=== PATIENT | male | born 1950 | race Caucasian/White ===

== ENCOUNTER 2019-02-03 05:17 | Day surgery (SDC) | payer MEDICARE, OTHER ==
[2019-02-03] MEDS ORDERED: fentaNYL 100 MCG/2 ML SDV IV ONE ×3 (05:18→06:36)
[2019-02-03] MEDS ORDERED: Midazolam 1 MG/ML 2 ML SDV IV ONE ×7 (05:18→06:51)
[2019-02-03] MEDS ORDERED: Dextrose 5%-0.45% NaCl 1,000 ML IV SCH (06:00)
[2019-02-03] MEDS ORDERED: Sodium Chloride 0.9% 10 ML Syringe FLUSH PRN (06:00)
[2019-02-03] MEDS ORDERED: Midazolam 1 MG/ML 2 ML SDV ONE (06:16)
[2019-02-03] MEDS ORDERED: fentaNYL 100 MCG/2 ML SDV ONE (06:17)
--- NOTE | 2019-02-03 12:28 | OR ---
DATE: 02/03/2019 PROCEDURE PERFORMED: Total colonoscopy. INSTRUMENT USED: [id number] Olympus video colonoscope. PREMEDICATIONS: Fentanyl 100 mcg intravenous, Versed 4 mg intravenous. Nasal O2 cannula. The procedure was done under pulse oximetry, BP recording, and diagnostic cardiac sonographer. INDICATION: The patient with rectal bleeding and positive FIT. Colonoscopic examination is done for detection of any polypoid lesions and removal, endoscopic hemostasis therapy if needed. DESCRIPTION OF PROCEDURE: Initial rectal exam was unremarkable. Rigid anoscopy showed moderate-sized internal hemorrhoids with some prolapse of the mucosa. The colonoscope was passed with relative ease up to the ileocecal area. Photographs were taken of the cecum, identified by double-bulged ileocecal folds. No bleeding was noted from any of the visualized areas at the commencement of the examination. Bowel preparation was found to be adequate, [place] scale 2 in all the regions. No stricture, no vascular ectasia. No large isolated ulcerations seen. No evidence of diffuse inflammatory bowel disease in the form of friability, contact bleeding, or ulcerations. No polyp or tumor mass identified. Probing the proximal sides of folds and flexures using adequate distention and clearing up the stool material, withdrawal of the scope was made. Cecum to rectum time over 6 minutes. No bleeding was noted from any of the visualized areas at the completion of the examination. IMPRESSION: Internal hemorrhoids. The patient tolerated the procedure well. [facility] /[id number]
== END 2019-02-03 09:07 | disposition home or self-care (01) ==
LOC: DL.ENDO 05:17
PROVIDERS: ATTEND Internal Medicine Gastroenterology
DX: K64.8 Other hemorrhoids (principal)
CPT/HCPCS: G0121; J2250; J3010; J7042

== ENCOUNTER 2019-07-19 17:44 | Emergency (ER) | payer MEDICARE ==
[2019-07-19] MEDS ORDERED: Dexamethasone 4 MG/ML SDV IVPUSH ONE (18:08)
[2019-07-19] MEDS ORDERED: diazePAM 5 MG/ML MDV IVPUSH ONE ×2 (18:09→18:47)
[2019-07-19] MEDS ORDERED: Lidocaine 5% Oint 35.44 GM Tube ONE (18:53)
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
== END 2019-07-19 19:24 | disposition home or self-care (01) ==
LOC: DL.ED 17:44
DX: M62.830 Muscle spasm of back (principal); E78.00 Pure hypercholesterolemia, unspecified; I10 Essential (primary) hypertension; N40.0 Benign prostatic hyperplasia without lower urinary tract symptoms; E66.9 Obesity, unspecified; Z68.37 Body mass index [BMI] 37.0-37.9, adult; Z88.8 Allergy status to other drugs, medicaments and biological substances; Z79.82 Long term (current) use of aspirin; Z79.899 Other long term (current) drug therapy
CPT/HCPCS: 81003; 96374; 96375; 96376; 99283; A9270; J1100; J3360

== ENCOUNTER 2022-02-15 07:08 | Day surgery (SDC) | payer MEDICARE ==
[2022-02-15] MEDS ORDERED: Midazolam 1 MG/ML 2 ML SDV IV ONE (07:09)
[2022-02-15] MEDS ORDERED: Sodium Chloride 0.9% 10 ML Syringe IV ONE (07:09)
[2022-02-15] MEDS ORDERED: Dexamethasone 4 MG/ML SDV IV ONE (07:09)
[2022-02-15] MEDS ORDERED: Glycopyrrolate 0.2 MG/ML 2 ML SDV IV ONE (07:09)
[2022-02-15] MEDS ORDERED: Timolol Maleate 0.5% Ophth Soln 5 ML Bottle EYELF ONE (07:30)
[2022-02-15] MEDS ORDERED: Povidone-Iodine 5% Sterile Ophth Soln 30 ML Bottle EYELF ONE ×2 (07:30→08:39)
[2022-02-15] MEDS ORDERED: Acetaminophen/Codeine 300-30 MG Tab PO PRN (07:30)
[2022-02-15] MEDS ORDERED: Ondansetron 4 MG/2 ML SDV IVPUSH PRN (07:30)
[2022-02-15] MEDS ORDERED: Cataract Ophth Solution EYELF ONE (07:30)
[2022-02-15] MEDS ORDERED: Proparacaine 0.5% Ophth Soln 15 ML Bottle EYELF ONE (07:30)
[2022-02-15] MEDS ORDERED: Tropicamide 1% Ophth Soln 15 ML Bottle EYELF ONE (07:30)
[2022-02-15] MEDS ORDERED: Tobramycin 0.3% Ophth Drops 5 ML Bottle EYELF SCH (07:30)
[2022-02-15] MEDS ORDERED: Moxifloxacin 0.5% Ophth Soln 3 ML Bottle EYELF ONE (07:30)
[2022-02-15] MEDS ORDERED: Phenylephrine 10% Ophth Soln 5 ML Bot EYELF ONE (07:30)
[2022-02-15] MEDS ORDERED: Acetaminophen 325 MG Tab PO PRN (07:30)
[2022-02-15] MEDS ORDERED: Sodium Chloride 0.9% 10 ML Syringe FLUSH PRN (07:30)
[2022-02-15] MEDS ORDERED: Tetracaine HCl/PF 0.5% 4 ML Bottle EYELF ONE (08:38)
[2022-02-15] MEDS ORDERED: Apraclonidine 0.5% Ophth Soln 5 ML Bot EYELF ONE (08:40)
[2022-02-15] MEDS ORDERED: Dexamethasone/Neomycin/Polymyxin B Ophth Oint 3.5 GM Tube EYELF ONE (08:41)
[2022-02-15] MEDS ORDERED: Diclofenac Sodium 0.1% Ophth Soln 5 ML Bottle EYELF ONE (08:41)
[2022-02-15] MEDS ORDERED: Lidocaine 1% 30 ML SDV ONE (08:42)
[2022-02-15] MEDS ORDERED: Balanced Salt Solution Ophth Irrig 500 ML Bottle IOCULAR ONE (08:42)
[2022-02-15] MEDS ORDERED: Vancomycin 500 MG SDV EYELF ONE (08:43)
[2022-02-15] MEDS ORDERED: Chondroitin Sulfate/Hyaluronate Sodium Ophth Inj 0.75 ML Syringe EYELF ONE (08:43)
== END 2022-02-15 09:45 | disposition home or self-care (01) ==
LOC: DL.SDS 07:08
PROVIDERS: ATTEND Ophthalmology
DX: H26.9 Unspecified cataract (principal); I10 Essential (primary) hypertension; E78.5 Hyperlipidemia, unspecified; E66.09 Other obesity due to excess calories; N40.0 Benign prostatic hyperplasia without lower urinary tract symptoms; K64.8 Other hemorrhoids; Z68.32 Body mass index [BMI] 32.0-32.9, adult; Z86.59 Personal history of other mental and behavioral disorders; Z87.891 Personal history of nicotine dependence; Z01.812 Encounter for preprocedural laboratory examination; Z20.822 Contact with and (suspected) exposure to COVID-19; Z90.49 Acquired absence of other specified parts of digestive tract; Z88.8 Allergy status to other drugs, medicaments and biological substances
CPT/HCPCS: 00140; 66982; A9270; J1100; J2250; J3370; J3490; U0002; V2632

== ENCOUNTER 2022-03-01 08:48 | Day surgery (SDC) | payer MEDICARE ==
[2022-03-01] MEDS ORDERED: Midazolam 1 MG/ML 2 ML SDV IV ONE (08:49)
[2022-03-01] MEDS ORDERED: Dexamethasone 4 MG/ML SDV IV ONE (08:49)
[2022-03-01] MEDS ORDERED: Sodium Chloride 0.9% 10 ML Syringe IV ONE (08:49)
[2022-03-01] MEDS ORDERED: Acetaminophen/Codeine 300-30 MG Tab PO PRN (09:30)
[2022-03-01] MEDS ORDERED: Tobramycin 0.3% Ophth Drops 5 ML Bottle EYERT SCH (09:30)
[2022-03-01] MEDS ORDERED: Moxifloxacin 0.5% Ophth Soln 3 ML Bottle EYERT ONE (09:30)
[2022-03-01] MEDS ORDERED: Povidone-Iodine 5% Sterile Ophth Soln 30 ML Bottle EYERT ONE ×2 (09:30→10:17)
[2022-03-01] MEDS ORDERED: Sodium Chloride 0.9% 10 ML Syringe FLUSH PRN (09:30)
[2022-03-01] MEDS ORDERED: Phenylephrine 10% Ophth Soln 5 ML Bot EYERT ONE (09:30)
[2022-03-01] MEDS ORDERED: Ondansetron 4 MG/2 ML SDV IVPUSH PRN (09:30)
[2022-03-01] MEDS ORDERED: Timolol Maleate 0.5% Ophth Soln 5 ML Bottle EYERT ONE (09:30)
[2022-03-01] MEDS ORDERED: Tropicamide 1% Ophth Soln 15 ML Bottle EYERT ONE (09:30)
[2022-03-01] MEDS ORDERED: Cataract Ophth Solution EYERT ONE (09:30)
[2022-03-01] MEDS ORDERED: Acetaminophen 325 MG Tab PO PRN (09:30)
[2022-03-01] MEDS ORDERED: Proparacaine 0.5% Ophth Soln 15 ML Bottle EYERT ONE (09:30)
[2022-03-01] MEDS ORDERED: Tetracaine HCl/PF 0.5% 4 ML Bottle EYERT ONE (10:17)
[2022-03-01] MEDS ORDERED: Apraclonidine 0.5% Ophth Soln 5 ML Bot EYERT ONE (10:17)
[2022-03-01] MEDS ORDERED: Dexamethasone/Neomycin/Polymyxin B Ophth Oint 3.5 GM Tube EYERT ONE (10:18)
[2022-03-01] MEDS ORDERED: Diclofenac Sodium 0.1% Ophth Soln 5 ML Bottle EYERT ONE (10:18)
[2022-03-01] MEDS ORDERED: Vancomycin 500 MG SDV EYERT ONE (10:19)
[2022-03-01] MEDS ORDERED: Lidocaine 1% 5 ML VIAL ONE (10:19)
[2022-03-01] MEDS ORDERED: Balanced Salt Solution Ophth Irrig 500 ML Bottle IOCULAR ONE (10:19)
[2022-03-01] MEDS ORDERED: Chondroitin Sulfate/Hyaluronate Sodium Ophth Inj 0.75 ML Syringe EYERT ONE (10:20)
== END 2022-03-01 11:20 | disposition home or self-care (01) ==
LOC: DL.SDS 08:48
PROVIDERS: ATTEND Ophthalmology
DX: H25.811 Combined forms of age-related cataract, right eye (principal); I10 Essential (primary) hypertension; E78.5 Hyperlipidemia, unspecified; E66.09 Other obesity due to excess calories; K64.8 Other hemorrhoids; N40.0 Benign prostatic hyperplasia without lower urinary tract symptoms; Z87.891 Personal history of nicotine dependence; Z01.812 Encounter for preprocedural laboratory examination; Z20.822 Contact with and (suspected) exposure to COVID-19; Z90.49 Acquired absence of other specified parts of digestive tract; Z88.6 Allergy status to analgesic agent
CPT/HCPCS: 00142; 66982; A9270; J1100; J2250; J3370; J3490; U0002